=== PATIENT | female | born 1940 | race Caucasian/White ===

== ENCOUNTER 2017-01-24 13:48 | Outpatient (CLI) | payer MEDICARE, OTHER ==
[2017-01-24 14:32] LABS: #Basophils 0.1 thou/uL (0.0-0.2); #Eosinphils 0.2 thou/uL (0.0-0.7); #Lymphocytes 1.3 thou/uL (1.20-3.40); #Monocytes 0.5 thou/uL (0.11-0.59); %Basophils 1.5 % (0.0-1.0); %Eosinophils 3.3 % (0.0-10.0); %Lymphocytes 25.5 % (21.0-51.0); %Monocytes 9.8 % (0.0-10.0); %Neutrophils 59.9 % (42.0-75.0); Hemoglobin 12.4 g/dL (12.0-16.0); Mean Corpuscular HGB CONC 34.2 g/dL (32.0-36.0); Mean Corpuscular Hemoglobin 32.6 pg (27.0-31.0); Mean Corpuscular Volume 95.3 fl (81.0-99.0); Mean Platelet Volume 8.1 fL (7.4-10.4); Platelet Count 190 thou/uL (130-400); RBC Distribution Width 11.5 % (11.5-14.5); Red Blood Cell (RBC) Count 3.82 mill/uL (4.20-5.40); White Blood Cell (WBC) Count 4.9 thou/uL (4.8-10.8)
[2017-01-24 14:41] LABS: Bilirubin Negative (Negative); Blood, Urine Trace (Negative); Clarity Clear (Clear); Glucose, Urine (Dipstick) Negative (Negative); Leukocyte Negative (Negative); Nitrite Negative (Negative); Protein, Urine (Dipstick) Negative (Neg-Trace); Urobilinogen 0.2 mg/dL (0.2-1.0); pH, Urine 5.5 (5.0-9.0)
[2017-01-24 14:50] LABS: Bacteria/HPF 2+ HPF (None Seen); RBC/HPF 0-3 HPF (0-3); Squamous Epithelial 0-3 HPF (0-3); WBC/HPF 0-3 HPF (0-3)
[2017-01-24 14:51] LABS: ALT (SGPT) 9 U/L (0-55); AST (SGOT) 24 U/L (5-34); Albumin 4.1 g/dL (3.4-4.8); Alkaline Phosphatase 73 U/L (40-150); Anion Gap 14 mmol/L (10-20); BUN (Urea Nitrogen) 23 mg/dL (9.8-20.1); Bilirubin, Total 0.4 mg/dL (0.2-1.2); Calc. Creatinine Clearance 0 mL/min (70-130); Calcium 9.8 mg/dL (7.8-10.44); Carbon Dioxide 23 mmol/L (23-31); Chloride 105 mmol/L (98-107); Estimated GFR-MDRD 31; Globulin 2.5 g/dL (2.4-3.5); Glucose 99 mg/dL (83-110); Magnesium 1.6 mg/dL (1.6-2.6); Phosphorus 3.2 mg/dL (2.3-4.7); Potassium 4.3 mmol/L (3.5-5.1); Protein, Total 6.6 g/dL (5.8-8.1); Sodium 138 mmol/L (136-145)
[2017-01-27 15:24] LABS: Kappa Lambda Light Chain Ratio 1.86 (0.26-1.65); Kappa Light Chains 21.68 mg/L (3.30-19.40); Lambda Light Chain 11.67 mg/L (5.71-26.30)
[2017-01-28 07:24] LABS: Kappa/Lambda Ratio 15.5 (2.04-10.37)
== END 2017-01-24 13:49 | disposition home or self-care (01) ==
LOC: MADLAB 13:48
PROVIDERS: ATTEND Internal Medicine Nephrology
DX: C85.98 Non-Hodgkin lymphoma, unspecified, lymph nodes of multiple sites (principal); N18.9 Chronic kidney disease, unspecified; E83.40 Disorders of magnesium metabolism, unspecified; E83.30 Disorder of phosphorus metabolism, unspecified; D63.1 Anemia in chronic kidney disease; N25.81 Secondary hyperparathyroidism of renal origin; N04.9 Nephrotic syndrome with unspecified morphologic changes
CPT/HCPCS: 36415; 80053; 81001; 83735; 83883; 83970; 84100; 85025; 87077; 87086; 87186

== ENCOUNTER 2017-08-03 06:15 | Emergency (ER) | payer MEDICARE, OTHER ==
[2017-08-03] MEDS ORDERED: Sodium Chloride 0.9% 1,000 ML BAG ONE (07:07)
[2017-08-03 07:39] LABS: #Lymphocytes 0.8 thou/uL (1.20-3.40); #Monocytes 0.7 thou/uL (0.11-0.59); #Neutrophils 7.8 thou/uL (1.40-6.50); %Basophils 0.4 % (0.0-1.0); %Lymphocytes 8.1 % (21.0-51.0); %Monocytes 7.2 % (0.0-10.0); %Neutrophils 84.3 % (42.0-75.0); Hemoglobin 14.7 g/dL (12.0-16.0); Mean Corpuscular Hemoglobin 31.9 pg (27.0-31.0); Mean Corpuscular Volume 96.8 fl (81.0-99.0); Platelet Count 235 thou/uL (130-400); RBC Distribution Width 12.8 % (11.5-14.5); White Blood Cell (WBC) Count 9.3 thou/uL (4.8-10.8)
[2017-08-03] MEDS ORDERED: Morphine Sulfate 2 MG/ML SYRINGE ONE (07:40)
[2017-08-03] MEDS ORDERED: Ketorolac Tromethamine 30 MG/ML VIAL ONE (07:41)
[2017-08-03] MEDS ORDERED: Metoclopramide HCl 10 MG/2 ML VIAL ONE (07:41)
[2017-08-03] MEDS ORDERED: Ondansetron HCl/PF 4 MG/2 ML Vial ONE (07:41)
[2017-08-03 07:51] LABS: Bacteria/HPF Rare-Few HPF (None Seen); Bilirubin Negative (Negative); Blood, Urine Trace (Negative); Clarity Clear (Clear); Glucose, Urine (Dipstick) Negative (Negative); Leukocyte Negative (Negative); Nitrite Negative (Negative); Protein, Urine (Dipstick) Negative (Neg-Trace); RBC/HPF 0-3 HPF (0-3); Specific Gravity, Urine 1.015 (1.005-1.030); Squamous Epithelial 0-3 HPF (0-3); Urobilinogen 0.2 mg/dL (0.2-1.0); WBC/HPF 0-3 HPF (0-3)
[2017-08-03 07:55] LABS: ALT (SGPT) 10 U/L (8-55); AST (SGOT) 22 U/L (5-34); Alkaline Phosphatase 85 U/L (40-150); Anion Gap 17 mmol/L (10-20); BUN (Urea Nitrogen) 30 mg/dL (9.8-20.1); Bilirubin, Total 0.6 mg/dL (0.2-1.2); Calc. Creatinine Clearance 0 mL/min (70-130); Calcium 9.8 mg/dL (7.8-10.44); Carbon Dioxide 28 mmol/L (23-31); Chloride 101 mmol/L (98-107); Estimated GFR-MDRD 33; Globulin 3.3 g/dL (2.4-3.5); Glucose 145 mg/dL (83-110); Lipase 45 U/L (8-78); Potassium 4.4 mmol/L (3.5-5.1); Protein, Total 7.3 g/dL (6.0-8.3); Sodium 142 mmol/L (136-145)
--- NOTE | 2017-08-03 08:16 | RAD ---
SINGLE VIEW OF THE CHEST: Comparison: 07-15-16 History: Nausea, vomiting. FINDINGS: Single view of the chest shows a normal sized cardiomediastinal silhouette. There is no evidence of consolidation, mass, or pleural effusion. The bones are unremarkable. IMPRESSION: No evidence of acute cardiopulmonary disease. POS: [facility]
== END 2017-08-03 09:15 | disposition home or self-care (01) ==
LOC: MADERS 06:15
DX: R11.2 Nausea with vomiting, unspecified (principal); R19.7 Diarrhea, unspecified; E03.9 Hypothyroidism, unspecified
CPT/HCPCS: 71010; 80053; 81001; 82150; 83690; 85025; 87086; 96361; 96374; 96375; J1885; J2270; J2405; J2765; J7050

== ENCOUNTER 2017-08-10 12:28 | Outpatient (CLI) | payer MEDICARE, OTHER ==
[2017-08-10 12:59] LABS: Hemoglobin 12.9 g/dL (12.0-16.0)
[2017-08-10 13:00] LABS: Bilirubin Negative (Negative); Blood, Urine Trace (Negative); Clarity Clear (Clear); Glucose, Urine (Dipstick) Negative (Negative); Leukocyte Negative (Negative); Nitrite Negative (Negative); Protein, Urine (Dipstick) Negative (Neg-Trace); Specific Gravity, Urine 1.015 (1.005-1.030); Urobilinogen 0.2 mg/dL (0.2-1.0)
[2017-08-10 13:24] LABS: Albumin 3.9 g/dL (3.4-4.8); Anion Gap 14 mmol/L (10-20); BUN (Urea Nitrogen) 34 mg/dL (9.8-20.1); Calc. Creatinine Clearance 0 mL/min (70-130); Calcium 9.3 mg/dL (7.8-10.44); Carbon Dioxide 27 mmol/L (23-31); Chloride 103 mmol/L (98-107); Estimated GFR-MDRD 32; Glucose 107 mg/dL (83-110); Magnesium 1.6 mg/dL (1.6-2.6); Potassium 4.6 mmol/L (3.5-5.1); Sodium 139 mmol/L (136-145)
== END 2017-08-10 12:29 | disposition home or self-care (01) ==
LOC: MADLAB 12:28
PROVIDERS: ATTEND Internal Medicine Nephrology
DX: N18.9 Chronic kidney disease, unspecified (principal); R30.0 Dysuria; E83.40 Disorders of magnesium metabolism, unspecified; E83.30 Disorder of phosphorus metabolism, unspecified; D50.9 Iron deficiency anemia, unspecified; N25.81 Secondary hyperparathyroidism of renal origin; N04.9 Nephrotic syndrome with unspecified morphologic changes
CPT/HCPCS: 36415; 80048; 81003; 82040; 83735; 83970; 84100; 85014; 85018; 87086

== ENCOUNTER 2019-03-28 09:04 | Outpatient (CLI) | payer MEDICARE, OTHER ==
--- NOTE | 2019-03-28 11:18 | ULT ---
THYROID ULTRASOUND: HISTORY: Visible thyroid lesion on mammogram. FINDINGS: Multiple longitudinal and transverse images of the thyroid gland were obtained using a multihertz maribell ear ray transducer. Real-time color flow images were used to evaluate the thyroid gland. The right thyroid lobe measures 3.4 x 1.5 x 2.0 cm while the left lobe measures 4.4 x 2.0 x 2.2 cm. Both thyroid lobes contain numerous small solid thyroid lesions compatible with multinodular goiter. The largest lesion is in the inferior pole of the left thyroid lobe and measures 2.1 x 1.3 x 1.5 cm. This lesion has well-circumscribed margins but is solid in appearance with iso- to hypoechoic appea glenn. This gives overall TIRADS approximately points of 3-4 with repeat thyroid ultrasound in 6 mon ths being recommended for followup evaluation. IMPRESSION: TIRADS TR3, mildly suspicious. Followup sonogram in 6 months recommended. POS: [facility]
== END 2019-03-28 09:05 | disposition home or self-care (01) ==
LOC: MADULT 09:04
PROVIDERS: ATTEND General Practice
DX: E04.1 Nontoxic single thyroid nodule (principal)
CPT/HCPCS: 76536

== ENCOUNTER 2019-05-22 12:35 | Emergency (ER) | payer MEDICARE, OTHER ==
--- NOTE | 2019-05-22 13:23 | RAD ---
Radiograph left hand 3 views: DATE: 05/22/2019 HISTORY: 78-year-old female with traumatic hand pain after fall. FINDINGS: Very severe DJD at first IP. Mild DJD at first CMC. Multiple subchondral cysts at distal ulna. No acu te fracture identified. Soft tissue calcifications adjacent to the third MCP and to a lesser degree second MCP. No dislocation. Sclerosis and irregularity of articular surfaces between the radius and l unate. IMPRESSION: 1. No fracture. 2. 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 3. Moderate osteoarthrosis of radiolunate articulation.
== END 2019-05-22 13:50 | disposition home or self-care (01) ==
LOC: MADERS 12:35
DX: S63.213A Subluxation of metacarpophalangeal joint of left middle finger, initial encounter (principal); S60.222A Contusion of left hand, initial encounter; E03.9 Hypothyroidism, unspecified; R29.6 Repeated falls; Z79.899 Other long term (current) drug therapy; W18.30XA Fall on same level, unspecified, initial encounter
CPT/HCPCS: 29125

== ENCOUNTER 2019-11-14 05:33 | Emergency (ER) | payer MEDICARE, OTHER ==
[2019-11-14 06:07] LABS: #Basophils 0.1 thou/uL (0.0-0.2); #Eosinphils 0.2 thou/uL (0.0-0.7); #Lymphocytes 1.9 thou/uL (1.20-3.40); #Monocytes 0.9 thou/uL (0.11-0.59); #Neutrophils 4.3 thou/uL (1.40-6.50); %Basophils 1.3 % (0.0-1.0); %Eosinophils 3.3 % (0.0-10.0); %Lymphocytes 24.9 % (21.0-51.0); %Monocytes 12.3 % (0.0-10.0); %Neutrophils 58.2 % (42.0-75.0); Hemoglobin 11.6 g/dL (12.0-16.0); Mean Corpuscular HGB CONC 31.7 g/dL (32.0-36.0); Mean Corpuscular Hemoglobin 30.8 pg (27.0-31.0); Mean Corpuscular Volume 97.2 fL (78.0-98.0); Mean Platelet Volume 7.4 fL (7.4-10.4); Platelet Count 219 thou/uL (130-400); RBC Distribution Width 11.8 % (11.5-14.5); Red Blood Cell (RBC) Count 3.76 mill/uL (4.20-5.40); White Blood Cell (WBC) Count 7.5 thou/uL (4.8-10.8)
[2019-11-14] MEDS ORDERED: Aspirin Chewable 81 MG TAB ONE (06:18)
[2019-11-14] MEDS ORDERED: Nitroglycerin 2% Ointment 1 INCH/1 GM Packet ONE (06:18)
[2019-11-14 06:23] LABS: ALT (SGPT) 7 U/L (8-55); AST (SGOT) 17 U/L (5-34); Albumin 3.7 g/dL (3.4-4.8); Alkaline Phosphatase 59 U/L (40-110); Anion Gap 12 mmol/L (10-20); BUN (Urea Nitrogen) 29 mg/dL (9.8-20.1); Bilirubin, Total 0.3 mg/dL (0.2-1.2); Calc. Creatinine Clearance 0 mL/min (70-130); Calcium 9.6 mg/dL (7.8-10.44); Carbon Dioxide 27 mmol/L (23-31); Chloride 106 mmol/L (98-107); Estimated GFR-MDRD 33; Globulin 2.8 g/dL (2.4-3.5); Glucose 98 mg/dL (83-110); Potassium 4.5 mmol/L (3.5-5.1); Protein, Total 6.5 g/dL (6.0-8.3); Sodium 140 mmol/L (136-145)
[2019-11-14 06:24] LABS: CKMB 2.7 ng/mL (0-6.6)
--- NOTE | 2019-11-14 06:30 | RAD ---
RADIOGRAPH CHEST 1 VIEW: DATE: 11/14/2019 HISTORY: 79-year-old female with chest pain FINDINGS: There is no airspace density, pulmonary edema, or pneumothorax. The lateral costophrenic angles are n ot effaced. IMPRESSION: No acute pulmonary findings.
[2019-11-14 06:44] LABS: CK (CPK) 70 U/L (29-168); Lipase 53 U/L (8-78)
== END 2019-11-14 07:21 | disposition home or self-care (01) ==
LOC: MADERS 05:33
DX: M79.602 Pain in left arm (principal); E03.9 Hypothyroidism, unspecified; F41.9 Anxiety disorder, unspecified; Z85.72 Personal history of non-Hodgkin lymphomas; Z79.899 Other long term (current) drug therapy
CPT/HCPCS: 36415; 71045; 80053; 82550; 82553; 83690; 84484; 85025; 93005; 94760

== ENCOUNTER 2020-03-15 14:31 | Emergency (ER) | payer MEDICARE, OTHER ==
[2020-03-15] MEDS ORDERED: Adacel (T-DAP) 0.5 ML SYRINGE ONE (15:28)
--- NOTE | 2020-03-15 16:26 | RAD ---
RIGHT ELBOW FOUR VIEWS: History: Injury FINDINGS: There is some generalized soft tissue swelling of the elbow including some focal soft tissue swelling posteriorly over the olecranon. Mild arthrosis changes of the elbow joint. No acute fracture or disl ocation. No evidence for elbow joint effusion. IMPRESSION: Soft tissue swelling including over the olecranon region. This could certainly be related to soft tis farhad injury versus olecranon bursal fluid or olecranon bursitis. No fracture or dislocation or abnorma l joint effusion. POS: [facility]
--- NOTE | 2020-03-15 16:31 | CT ---
BRAIN CT WITHOUT IV CONTRAST: History: Injury from a fall. FINDINGS: There is some atrophy and chronic white matter ischemic change. No focal mass or midline shift. No in tra or extraaxial hemorrhage. Right maxillary sinus mucosal disease in the anterior inferior right ma xillary sinus with some increased density, evidence for some chronic change. No evidence for air flui d level. Visualized orbits are unremarkable. IMPRESSION: 1. Atrophy and chronic white matter ischemic change. Right maxillary sinus mucosal disease. No signif icant acute process. POS: [facility]
--- NOTE | 2020-03-15 16:35 | CT ---
CERVICAL SPINE CT SCAN WITHOUT IV CONTRAST: History: Injury from a fall, neck pain. FINDINGS: Fairly severe spondylosis with disc osteophytosis and facet arthrosis. 0.2 cm anterolisthesis of C7 o n T1 which appears to be degenerative in origin. No evidence for associated acute fracture or facet d islocation. There is very severe facet arthrosis bilaterally. There are numerous fibronodular changes in the lung apices bilaterally, probably related to scarring and chronic lung disease. There is defo rmity of the right mandibular condyle which is anteriorly chronically subluxed or dislocation. The ma stoids appear clear. IMPRESSION: 1. Severe disc osteophytosis and facet arthrosis with mild 0.2 cm anterolisthesis of C7 on T1 without acute fracture or facet dislocation. Numerous small bilateral thyroid nodules up to 1.4 cm in size w ith some hyperdense nodules and some scattered calcific changes throughout the thyroid gland, evidenc e for multinodular goiter. If that is an area of clinical concern, a follow up nonemergent thyroid ul trasound might be considered. 2. Some fibrolinear and fibronodular scarring in the apices of the lungs bilaterally. POS: [facility]
== END 2020-03-15 16:00 | disposition home or self-care (01) ==
LOC: MADERS 14:31
DX: S03.01XA Dislocation of jaw, right side, initial encounter (principal); S16.1XXA Strain of muscle, fascia and tendon at neck level, initial encounter; S50.01XA Contusion of right elbow, initial encounter; J32.9 Chronic sinusitis, unspecified; E03.9 Hypothyroidism, unspecified; F41.9 Anxiety disorder, unspecified; Z79.899 Other long term (current) drug therapy; W01.0XXA Fall on same level from slipping, tripping and stumbling without subsequent striking against object, initial encounter
CPT/HCPCS: 70450; 72125; 90471; 90715

== ENCOUNTER 2020-09-09 17:47 | Emergency (ER) | payer MEDICARE, OTHER ==
[2020-09-09 18:38] LABS: #Basophils 0.1 thou/uL (0.0-0.2); #Lymphocytes 0.8 thou/uL (1.20-3.40); #Monocytes 0.9 thou/uL (0.11-0.59); #Neutrophils 7.5 thou/uL (1.40-6.50); %Basophils 1.4 % (0.0-1.0); %Eosinophils 0.1 % (0.0-10.0); %Lymphocytes 8.5 % (21.0-51.0); %Monocytes 9.5 % (0.0-10.0); %Neutrophils 80.5 % (42.0-75.0); Hemoglobin 11.6 g/dL (12.0-16.0); Mean Corpuscular HGB CONC 32.8 g/dL (32.0-36.0); Mean Corpuscular Hemoglobin 31.4 pg (27.0-31.0); Mean Corpuscular Volume 95.5 fL (78.0-98.0); Mean Platelet Volume 8.2 fL (7.4-10.4); Platelet Count 146 thou/uL (130-400); RBC Distribution Width 11.4 % (11.5-14.5); Red Blood Cell (RBC) Count 3.71 mill/uL (4.20-5.40); White Blood Cell (WBC) Count 9.3 thou/uL (4.8-10.8)
[2020-09-09 18:53] LABS: ALT (SGPT) 12 U/L (8-55); AST (SGOT) 31 U/L (5-34); Albumin 3.7 g/dL (3.4-4.8); Alkaline Phosphatase 54 U/L (40-110); Anion Gap 17 mmol/L (10-20); BUN (Urea Nitrogen) 19 mg/dL (9.8-20.1); Bilirubin, Total 0.5 mg/dL (0.2-1.2); CK (CPK) 186 U/L (29-168); Calc. Creatinine Clearance 0 mL/min (70-130); Calcium 8.5 mg/dL (7.8-10.44); Carbon Dioxide 23 mmol/L (23-31); Chloride 100 mmol/L (98-107); Estimated GFR-MDRD 34; Globulin 2.5 g/dL (2.4-3.5); Glucose 113 mg/dL (83-110); Potassium 4.2 mmol/L (3.5-5.1); Protein, Total 6.2 g/dL (6.0-8.3); Sodium 136 mmol/L (136-145)
[2020-09-09 19:23] LABS: Bilirubin Negative (Negative); Blood, Urine Small (Negative); Clarity Clear (Clear); Glucose, Urine (Dipstick) Negative (Negative); Ketone, Urine Negative (Negative); Leukocyte Negative (Negative); Nitrite Negative (Negative); Protein, Urine (Dipstick) Trace mg/dL (Neg-Trace); Urobilinogen 0.2 mg/dL (Less than 2); pH, Urine 6.5 (5.0-9.0)
[2020-09-09 19:25] LABS: Bacteria/HPF 2+ HPF (None Seen); RBC/HPF 0-3 HPF (0-3); Squamous Epithelial 0-3 HPF (0-3); WBC/HPF 0-3 HPF (0-3)
[2020-09-09 19:26] LABS: Other Microscopic Description C&S SET UP
--- NOTE | 2020-09-09 19:28 | RAD ---
CHEST ONE VIEW: 09/09/20 HISTORY: Dyspnea. COMPARISON: 11/14/19 study. Heart size is within normal limits. There are atherosclerotic changes of the aorta. The lungs are neli ar of any infiltrative process. IMPRESSION: No active intrathoracic disease. POS: [facility]
[2020-09-09] MEDS ORDERED: cefTRIAXone\\ROCEPHIN 1 GM VIAL ONE (20:53)
[2020-09-09] MEDS ORDERED: Aspirin Chewable 81 MG TAB ONE (20:53)
[2020-09-09] MEDS ORDERED: Dexamethasone 10 MG/ML VIAL ONE (20:53)
[2020-09-09] MEDS ORDERED: Azithromycin 500 MG VIAL ONE (20:53)
[2020-09-09] MEDS ORDERED: Sodium Chloride 0.9% 100 ML ONE (20:54)
[2020-09-09] MEDS ORDERED: Sodium Chloride 0.9% 250 ML 250 ML ONE (20:54)
[2020-09-09] MEDS ORDERED: Sodium Chloride 0.9% 1,000 ML ONE (22:10)
[2020-09-09] MEDS ORDERED: Ondansetron PF 4 MG/2 ML Vial ONE (22:21)
[2020-09-09] MEDS ORDERED: Enoxaparin Sodium 60 MG/0.6 ML SYRINGE ONE (22:30)
== END 2020-09-09 22:33 | disposition short-term general hospital (02) ==
LOC: MADERS 17:47
DX: J20.9 Acute bronchitis, unspecified (principal); E03.9 Hypothyroidism, unspecified; F41.9 Anxiety disorder, unspecified
CPT/HCPCS: 36415; 51701; 71045; 80053; 81003; 81015; 82550; 83605; 84484; 85025; 85379; 87040; 87086; 87804; 93005; 94760; 96365; 96372; 96374; 96375; J0456; J0696; J1100; J1650; J2405; J3490; J7050

== ENCOUNTER 2020-09-22 11:41 | Inpatient (IN) | payer MEDICARE, OTHER ==
--- NOTE | 2020-09-22 12:26 | RAD ---
PA AND LATERAL VIEWS CHEST: Date: 09/22/2020 HISTORY: Pleuritic chest pain. FINDINGS: Comparison made with exam of 09/09/2020. The heart size is borderline. The lungs are well expanded with new multifocal patchy opacities bilate rally. No pneumothoraces or pleural effusions are seen. There are degenerative changes in the spine. IMPRESSION: Findings are suspicious for pneumonia. POS: [facility]
[2020-09-22 12:35] LABS: #Basophils 0.1 thou/uL (0.0-0.2); #Eosinphils 0.2 thou/uL (0.0-0.7); %Basophils 0.6 % (0.0-1.0); %Eosinophils 1.8 % (0.0-10.0); %Lymphocytes 8.8 % (21.0-51.0); %Monocytes 8.7 % (0.0-10.0); %Neutrophils 80.1 % (42.0-75.0); Hemoglobin 13.3 g/dL (12.0-16.0); Mean Corpuscular HGB CONC 31.9 g/dL (32.0-36.0); Mean Corpuscular Hemoglobin 31.7 pg (27.0-31.0); Mean Corpuscular Volume 99.3 fL (78.0-98.0); Mean Platelet Volume 6.6 fL (7.4-10.4); Platelet Count 228 thou/uL (130-400); RBC Distribution Width 12.1 % (11.5-14.5); White Blood Cell (WBC) Count 11.3 thou/uL (4.8-10.8)
[2020-09-22 12:58] LABS: ALT (SGPT) 12 U/L (8-55); AST (SGOT) 23 U/L (5-34); Albumin 3.3 g/dL (3.4-4.8); Alkaline Phosphatase 86 U/L (40-110); Anion Gap 14 mmol/L (10-20); BUN (Urea Nitrogen) 25 mg/dL (9.8-20.1); Bilirubin, Total 0.4 mg/dL (0.2-1.2); Calc. Creatinine Clearance 0 mL/min (70-130); Calcium 9.4 mg/dL (7.8-10.44); Carbon Dioxide 29 mmol/L (23-31); Chloride 102 mmol/L (98-107); Estimated GFR-MDRD 36; Globulin 3.1 g/dL (2.4-3.5); Glucose 103 mg/dL (83-110); Lipase 57 U/L (8-78); Potassium 4.9 mmol/L (3.5-5.1); Protein, Total 6.4 g/dL (6.0-8.3); Sodium 140 mmol/L (136-145)
[2020-09-22] MEDS ORDERED: Sodium Chloride 0.9% 1,000 ML ONE (13:30)
[2020-09-22] MEDS ORDERED: cefTRIAXone\\ROCEPHIN 2 GM VIAL ONE (13:30)
[2020-09-22] MEDS ORDERED: Enoxaparin Sodium 40 MG/0.4 ML SYRINGE ONE (13:30)
[2020-09-22] MEDS ORDERED: Sodium Chloride 0.9% 100 ML ONE (13:30)
[2020-09-22] MEDS ORDERED: Azithromycin 500 MG VIAL ONE (14:45)
[2020-09-22] MEDS ORDERED: Sodium Chloride 0.9% 250 ML 250 ML ONE (14:45)
[2020-09-22 16:12] VITALS: BMI 19.8
[2020-09-22] MEDS ORDERED: Albuterol Sulfate 1.25 MG/3 ML NEB NEB PRN (17:24)
[2020-09-22] MEDS ORDERED: Zolpidem Tartrate 5 MG TAB PO PRN (18:02)
[2020-09-22] MEDS ORDERED: Ondansetron ODT 4 MG TAB PO PRN (18:02)
[2020-09-22] MEDS ORDERED: Acetaminophen 325 MG TAB PO PRN (18:02)
[2020-09-22] MEDS ORDERED: Guaifenesin DM 100-10/5 ML UDCUP PO PRN (18:06)
[2020-09-22] MEDS: Enoxaparin Sodium 40 MG/0.4 ML SYRINGE SC SCH (20:33)
[2020-09-22] MEDS: Simvastatin 40 MG TAB PO SCH (20:33)
--- NOTE | 2020-09-23 03:18 | HP ---
PRIMARY CARE PHYSICIAN: Dr. Beverly Posada. HISTORY OF PRESENT ILLNESS: Ms. Valdivia is a very pleasant 80-year-old female, who had presented to the emergency room today, September 22, due to cough, painful breathing and pain to the upper back with some shortness of breath. The patient was admitted to [facility] in [place] on the August and discharged on the 16 September 2020 due to COVID-19 pneumonia with acute respiratory failure with hypoxia. The patient did well in the hospital. In [place], she was given convalescent plasma on the 12 of September and started on Remdesivir and she completed 4 days of Remdesivir and prior to discharge on the , the patient was able to ambulate with a rolling walker and she was discharged home with home oxygen and to continue dexamethasone for another 5 days and [facility]. The patient unfortunately on the 16 of September also lost her of 61 years due to COVID-19 pneumonia. She stated she went back to her home, but was unable to berry picker the dexamethasone, but was doing okay and she was not needing the oxygen as much. The patient stated she was doing pretty well until this a.m. when she noted worsening shortness of breath and left-sided pain with deep breath to the left posterior thorax radiating to the left posterior neck. The patient denies pain anywhere else. She denies any fever. She stated she continues to have a cough even when she was discharged. She denies any other symptoms. She denies any abdominal pain, any nausea, vomiting, or diarrhea. She denies fatigue. She denies chest pain or palpitations. The patient had chest x-ray in the emergency room and the chest x-ray did confirm bilateral new multifocal patchy opacities suspicious for pneumonia. The patient was started on IV 2 g Rocephin, normal saline, 500 mg of azithromycin with 40 mg of Lovenox in the emergency room. She chose not to go to the hospital in [place] due to recent discharge and preferred to be admitted here in [place]. Patient did further workup and this showed elevated D-dimer and upon evaluation, she had elevated D-dimer during admission recently in [place] due to COVID-19 pneumonia too. The decision was made to admit the patient here to [facility] in [facility]. Upon evaluation of patient, she was sad due to recent loss of her . She states she continues to feel little pain to her left upper back. 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 PAST SURGICAL HISTORY: C-sections x3, knee replacements, lymphectomy, bilateral cataracts, hysterectomy with BSO, colon resection due to blockage in 2014. FAMILY HISTORY: Mother at age 78 due to Alzheimer's. Father at age 72 due to heart attack. The patient does have 1 son who is alive and her spouse last week. SOCIAL HISTORY: The patient lives at home. She denies any illicit drug use. She denies any history of tobacco use. She denies any alcohol use. ALLERGIES: IODINE RASH ALLERGY. CODE STATUS: The patient is a full code. REVIEW OF SYSTEMS: CONSTITUTIONAL SYMPTOMS: Patient denies any fever, chills. Complains of some weakness. CARDIOVASCULAR: The patient denies any chest pain, syncope, blood pressure issue, problems of palpitation. RESPIRATORY: Patient complains of cough and shortness of breath. GASTROINTESTINAL: Patient denies any nausea, vomiting, diarrhea, constipation, indigestion, or pain in abdomen. GENITOURINARY: Patient denies any frequency, urgency, nocturia, or dysuria. HEMATOLOGY: No easy bruising or bleeding MUSCULOSKELETAL: The patient complains of joint pains. SKIN: Denies any rashes. NEUROLOGIC: The patient denies any slurring of speech or confusion. PSYCHOLOGICAL: The patient complains of some depression and grief due to recent loss of her . HOME MEDICATIONS: 1. Dexamethasone 6 mg p.o. daily x5 days. Not started yet 2. Albuterol nebulizer q.6 hours p.r.n. 3. Bisoprolol 5 mg daily. 4. Protonix 40 mg daily. 5. Aspirin 81 mg daily. 6. Duloxetine 40 mg b.i.d. 7. Simvastatin 40 mg at bedtime. PHYSICAL EXAMINATION: VITAL SIGNS: Temperature 97.8, pulse 64, respirations 18, O2 saturation 95% on room air, blood pressure 124/77. GENERAL: The patient is alert, awake, and oriented x3. She is lying comfortably in bed, in no apparent distress. HEENT: Extraocular muscles intact. No conjunctival injection. Nose exam is normal. Head is atraumatic, normocephalic. Tonsil area clear. NECK: Normal. Trachea midline. No meningeal signs. RESPIRATORY: Positive good air entry bilaterally. No wheezing. Occasional rhonchi present bilaterally. Chest expansion is equal. CARDIOVASCULAR: S1, S2. Regular rate and rhythm. No murmurs, gallops, or rubs. ABDOMEN: Positive bowel sounds. Soft, nontender, nondistended. No organomegaly. EXTREMITIES: No edema. No cyanosis. NEUROLOGICAL: No focal neurologic deficits. Cranial nerves 2 through 12 grossly intact. PSYCHIATRIC: Appropriate mood and affect. Positive for grief. SKIN: Normal. Warm and dry. Normal in color. No rash. ASSESSMENT AND PLAN: Patient is an 80-year-old female with history of recent COVID-19 pneumonia with acute respiratory failure with hypoxia, now with post viral bilateral bacterial pneumonia. 1. Post Viral Bilateral pneumonia. We will continue patient on IV Rocephin and IV azithromycin x5 days started in the ER. We will place the patient on supplemental oxygen as needed. We will place the patient on albuterol p.r.n. nebulizer. We will place the patient on Robitussin DM p.r.n. for cough. 2. Coronavirus disease 2019. We will restart the dexamethasone 6 mg p.o. times another 5 days. 3. Hypertension. We will resume the patient's home bisoprolol 5 mg daily. 4. Neuropathic pain. We will place the patient on duloxetine 40 mg twice a day. 5. Hypercholesterolemia. We will place the patient on simvastatin 40 mg at bedtime. 6. Grief. Will need outpatient counselling. 7. Generalized weakness. PT/OT consult ordered. 8. DVT and GI prophylaxis. We will place the patient on Protonix 40 mg daily[address] We will place the patient on Lovenox 40 mg daily. Code status. The patient is a full code. I have discussed about this at bedside. (60) minutes spent on this encounter with >50% of the time in counseling and coordination of care. Job ID: [id number] MTDD
[2020-09-23] MEDS: Dexamethasone 4 MG TAB PO SCH (08:54)
[2020-09-23] MEDS: Bisoprolol Fumarate 5 MG TAB PO SCH (08:55)
[2020-09-23] MEDS: Enoxaparin Sodium 40 MG/0.4 ML SYRINGE SC SCH ×2 (08:55→19:58)
[2020-09-23] MEDS: Aspirin 81 mg Enteric Coated Tablet PO SCH (08:55)
[2020-09-23] MEDS ORDERED: FLU VACC QS2020-21(65YR UP)/PF 240 MCG/0.7 ML SYRINGE IM ONE (09:00)
[2020-09-23] MEDS: cefTRIAXone\\ROCEPHIN 1 GM in Sodium Chloride 0.9% 100 ML IVPB SCH (13:30)
[2020-09-23] MEDS: Azithromycin 500 MG in Sodium Chloride 0.9% 250 ML 250 ML IVPB SCH (14:49)
[2020-09-23] MEDS: Simvastatin 40 MG TAB PO SCH (19:58)
[2020-09-23] MEDS: Temazepam 15 MG CAP PO SCH (20:01)
[2020-09-24] MEDS: Dexamethasone 4 MG TAB PO SCH (08:40)
[2020-09-24] MEDS: Aspirin 81 mg Enteric Coated Tablet PO SCH (08:40)
[2020-09-24] MEDS: Bisoprolol Fumarate 5 MG TAB PO SCH (08:40)
[2020-09-24] MEDS: Enoxaparin Sodium 40 MG/0.4 ML SYRINGE SC SCH ×2 (08:41→21:10)
[2020-09-24] MEDS: cefTRIAXone\\ROCEPHIN 1 GM in Sodium Chloride 0.9% 100 ML IVPB SCH (12:55)
[2020-09-24] MEDS: Azithromycin 500 MG in Sodium Chloride 0.9% 250 ML 250 ML IVPB SCH (14:09)
[2020-09-24] MEDS: Simvastatin 40 MG TAB PO SCH (21:11)
[2020-09-24] MEDS: Temazepam 15 MG CAP PO SCH (21:12)
[2020-09-25 06:04] LABS: #Lymphocytes 0.9 thou/uL (1.20-3.40); #Monocytes 0.6 thou/uL (0.11-0.59); #Neutrophils 10.9 thou/uL (1.40-6.50); %Basophils 0.2 % (0.0-1.0); %Monocytes 4.8 % (0.0-10.0); Hemoglobin 11.6 g/dL (12.0-16.0); Mean Corpuscular HGB CONC 31.9 g/dL (32.0-36.0); Mean Corpuscular Hemoglobin 31.9 pg (27.0-31.0); Mean Platelet Volume 7.8 fL (7.4-10.4); Platelet Count 194 thou/uL (130-400); RBC Distribution Width 11.8 % (11.5-14.5); Red Blood Cell (RBC) Count 3.63 mill/uL (4.20-5.40); White Blood Cell (WBC) Count 12.4 thou/uL (4.8-10.8)
[2020-09-25 06:12] LABS: ALT (SGPT) 10 U/L (8-55); AST (SGOT) 17 U/L (5-34); Albumin 3.1 g/dL (3.4-4.8); Alkaline Phosphatase 77 U/L (40-110); Anion Gap 13 mmol/L (10-20); BUN (Urea Nitrogen) 28 mg/dL (9.8-20.1); Bilirubin, Total 0.2 mg/dL (0.2-1.2); Calc. Creatinine Clearance 37 mL/min (70-130); Calcium 8.8 mg/dL (7.8-10.44); Carbon Dioxide 24 mmol/L (23-31); Chloride 108 mmol/L (98-107); Estimated GFR-MDRD 51; Globulin 2.9 g/dL (2.4-3.5); Glucose 134 mg/dL (83-110); Potassium 4.3 mmol/L (3.5-5.1); Sodium 141 mmol/L (136-145)
--- NOTE | 2020-09-25 07:20 | RAD ---
EXAM: Chest PA and lateral: HISTORY: Bilateral pneumonia COMPARISON: 09/09/2020, 09/22/2020 FINDINGS: Heart: Normal cardiac silhouette Aorta: Atherosclerotic Pulmonary vessels: Normal Costophrenic angles: Costophrenic angles are clear. Lungs: Redemonstration of multifocal opacities involving the left and right upper lobe. There is mild rightward deviation of the trachea suggesting possible component of right upper lobe atelectasis. Better interrogation of the chest CT would be beneficial. Pneumothorax: No pneumothorax Osseous structures: No osseous abnormalities IMPRESSION: 1. Multilobar pneumonia. 2. Possible volume loss in the right upper lobe. Better interrogation with chest CT is recommended.
[2020-09-25] MEDS: Bisoprolol Fumarate 5 MG TAB PO SCH (08:42)
[2020-09-25] MEDS: Aspirin 81 mg Enteric Coated Tablet PO SCH (08:43)
[2020-09-25] MEDS: Enoxaparin Sodium 40 MG/0.4 ML SYRINGE SC SCH (08:43)
[2020-09-25] MEDS: Dexamethasone 4 MG TAB PO SCH (08:43)
--- OUTSIDE RECORDS SUMMARY | 2020-09-25 12:05 | XMS | Patient Health Record ---
:1940 Author Organization [facility] Care Team Providers Name Role Phone Salzer Unavailable [phone] Meurer Unavailable [phone] [email or web address] Unavailable [phone] PROBLEMS Type Condition ICD9-CM VST71-PP Onset Condition SNOMED Code Notes Code Code Dates Status Problem Thyroid nodule E04.1 Active 155905327 Problem Hearing loss H91.90 Active 80077930 ALLERGIES No Known Allergies ENCOUNTERS from 1940 to 2020-09-25 Encounter Location Date Provider Diagnosis [facility] [address] [place] [address] 13 May, 2020 Adalid Don Thyroid n odule E04.1 ; [facility] [address] [place], [place] Hearing loss H9 1.90 [id number] IMMUNIZATIONS No Information SOCIAL HISTORY Tobacco Use: Social History Observation Description Date Details (start date - stop date) Never Smoker Sex Assigned At : Social History Observation Description Sex Assigned At Unknown Other Tobacco Use/Exposure Question Answer Notes Are you an other tobacco user? No Smoking Question Answer Notes Are you a: never smoker REASON FOR REFERRAL from 1940 to 2020-09-25 Reason CCM Referring Provider First Name Adalid Referring Provider Last Name Arian Referring Provider Specialty ENT Referring Provider [email or web address] Referred Provider [facility] ystem, Medical Records VITAL SIGNS No information MEDICATIONS Medication SIG (Take, Route, Frequency, Duration) Start Date En d Date Status Pantoprazole Sodium Active Zolpidem Tartrate Active Bisoprolol Fumarate Active Lorazepam Active levothyroxine Active PROCEDURES No Information RESULTS No Results REASON FOR VISIT Thyroid nodule--mb , Hoarseness ~ [facility], Referral MEDICAL (GENERAL) HISTORY Type Description Date Medical History allergies Medical History asthma Medical History cancer Medical History eye problems Medical History thyroid trouble Medical History high or low blood pressure Medical History pain in arms and hands Surgical History No know Surgical history Hospitalization History bowel 2013 Goals Section No Information Health Concerns No Information MEDICAL EQUIPMENT No Information MENTAL STATUS No Information FUNCTIONAL STATUS No Information ASSESSMENTS Encounter Date Diagnosis Notes May, Disequilibrium (ICD-10 - R42) May, Thyroid nodule (ICD-10 - E04.1) May, Hearing loss (ICD-10 - H91.90) Nov, Disequilibrium (ICD-10 - R42) Nov, Thyroid nodule (ICD-10 - E04.1) PLAN OF TREATMENT Treatment Notes Assessment Notes Clinical Notes Thyroid nodule Patient to repeat ultrasound of thyroid in 6 months to monitor changes and get labs to monitor thyroid function Disequilibrium Patient to get a VNG to monitor balance issues and RTC after VNG to discuss results. Patient is compliant with all information and has no further quest ions at this time of the visit. HIA -- GTM Treatment Notes Test Name Order Date FREE T3 2020-09-25 FREE T4 (FT4-FREE THYROXINE) 2020-09-25 VNG 2020-09-25 TSH-3RD GEN 2020-09-25 Future Test Test Name Order Date Ultrasound : Thyroid [id number] Referrals Referral Date Details Hoarseness, [facility], [place], [address], Thyroid nodule--aashish, Aadlid August [facility], [address], [place], [address], CCM CCM Next Appt Details After VNG Reason: Insurance Providers Payer Name Payer Address Payer Insured Patient Coverage Cover age Phone Name Relationship to Start Date End Date Insured [employer] [phone] Hunter Valdivia self Juani Hernandez [address] [place] [address] [place] [address] Medicare [address] ATTN [phone] Hunter Valdivia self Part [address] Claims [id number] [place] [phone]
[2020-09-25 12:41] VITALS: BP 139/79; TEMP 98
[2020-09-25] MEDS: cefTRIAXone\\ROCEPHIN 1 GM in Sodium Chloride 0.9% 100 ML IVPB SCH (13:11)
[2020-09-25] MEDS: Azithromycin 500 MG in Sodium Chloride 0.9% 250 ML 250 ML IVPB SCH (14:05)
== END 2020-09-25 14:52 | disposition swing bed (61) | DRG 177 ==
LOC: MADERS 11:41 → MADMS 14:02
PROVIDERS: ADMIT Family Medicine; ATTEND Family Medicine
DX: U07.1 COVID-19 (principal); J12.89 Other viral pneumonia; E03.9 Hypothyroidism, unspecified; E78.5 Hyperlipidemia, unspecified; N18.30 Chronic kidney disease, stage 3 unspecified; G47.00 Insomnia, unspecified; I12.9 Hypertensive chronic kidney disease with stage 1 through stage 4 chronic kidney disease, or unspecified chronic kidney disease; Z79.82 Long term (current) use of aspirin; Z79.899 Other long term (current) drug therapy; Z79.51 Long term (current) use of inhaled steroids; Z90.710 Acquired absence of both cervix and uterus; Z98.42 Cataract extraction status, left eye; Z98.41 Cataract extraction status, right eye; R53.1 Weakness; F43.21 Adjustment disorder with depressed mood
CPT/HCPCS: 36415; 71046; 80053; 83690; 84484; 85025; 85379; 87040; 87804; 93005; 96365; 96372; 96375; J0456; J0696; J1650; J3490; J7050; J8540

== ENCOUNTER 2020-09-25 12:49 | Inpatient (IN) | payer MEDICARE, OTHER ==
[2020-09-25 14:55] VITALS: BMI 19.9
[2020-09-25] MEDS ORDERED: Acetaminophen 325 MG TAB PO PRN (16:51)
[2020-09-25] MEDS ORDERED: Albuterol Sulfate 1.25 MG/3 ML NEB NEB PRN (16:51)
[2020-09-25] MEDS ORDERED: Guaifenesin DM 100-10/5 ML UDCUP PO PRN (16:53)
[2020-09-25] MEDS ORDERED: Ondansetron ODT 4 MG TAB PO PRN (16:53)
[2020-09-25] MEDS: Atorvastatin Calcium 10 MG TAB PO SCH (21:03)
[2020-09-25] MEDS: Enoxaparin Sodium 40 MG/0.4 ML SYRINGE SC SCH (21:04)
[2020-09-25] MEDS: Temazepam 15 MG CAP PO SCH (21:11)
[2020-09-26] MEDS: Levothyroxine Sodium 50 MCG TAB PO SCH (06:13)
[2020-09-26] MEDS: Enoxaparin Sodium 40 MG/0.4 ML SYRINGE SC SCH ×2 (08:57→21:46)
[2020-09-26] MEDS: Aspirin 81 mg Enteric Coated Tablet PO SCH (08:57)
[2020-09-26] MEDS: Bisoprolol Fumarate 5 MG TAB PO SCH (08:57)
[2020-09-26] MEDS: Dexamethasone 4 MG TAB PO SCH (08:57)
[2020-09-26] MEDS: cefTRIAXone\\ROCEPHIN 1 GM VIAL IVPB SCH (14:03)
[2020-09-26] MEDS: Azithromycin 500 MG VIAL IVPB SCH (15:38)
[2020-09-26] MEDS: Atorvastatin Calcium 10 MG TAB PO SCH (21:43)
[2020-09-26] MEDS: Temazepam 15 MG CAP PO SCH (21:44)
[2020-09-27] MEDS: Levothyroxine Sodium 50 MCG TAB PO SCH (08:22)
[2020-09-27] MEDS: Enoxaparin Sodium 40 MG/0.4 ML SYRINGE SC SCH ×2 (08:25→20:59)
[2020-09-27] MEDS: Dexamethasone 4 MG TAB PO SCH (08:25)
[2020-09-27] MEDS: Aspirin 81 mg Enteric Coated Tablet PO SCH (08:26)
[2020-09-27] MEDS: Bisoprolol Fumarate 5 MG TAB PO SCH (08:26)
[2020-09-27] MEDS: cefTRIAXone\\ROCEPHIN 1 GM VIAL IVPB SCH (13:50)
[2020-09-27] MEDS: Azithromycin 500 MG VIAL IVPB SCH (15:15)
[2020-09-27] MEDS: Atorvastatin Calcium 10 MG TAB PO SCH (20:59)
[2020-09-27] MEDS: Temazepam 15 MG CAP PO SCH (20:59)
[2020-09-28] MEDS: Levothyroxine Sodium 50 MCG TAB PO SCH (05:34)
[2020-09-28] MEDS: Dexamethasone 4 MG TAB PO SCH (08:44)
[2020-09-28] MEDS: Enoxaparin Sodium 40 MG/0.4 ML SYRINGE SC SCH ×2 (08:44→20:04)
[2020-09-28] MEDS: Bisoprolol Fumarate 5 MG TAB PO SCH (08:44)
[2020-09-28] MEDS: Aspirin 81 mg Enteric Coated Tablet PO SCH (08:44)
[2020-09-28] MEDS: Temazepam 15 MG CAP PO SCH (20:04)
[2020-09-28] MEDS: Atorvastatin Calcium 10 MG TAB PO SCH (20:05)
[2020-09-29] MEDS: Levothyroxine Sodium 50 MCG TAB PO SCH (05:23)
[2020-09-29 07:55] VITALS: BP 153/74; TEMP 97.7
[2020-09-29] MEDS: Aspirin 81 mg Enteric Coated Tablet PO SCH (08:43)
[2020-09-29] MEDS: Bisoprolol Fumarate 5 MG TAB PO SCH (08:43)
[2020-09-29] MEDS: Enoxaparin Sodium 40 MG/0.4 ML SYRINGE SC SCH (08:48)
--- NOTE | 2020-09-30 02:25 | DIS ---
DATE OF ADMISSION: 09/25/2020 DATE OF DISCHARGE: 09/29/2020 PRIMARY CARE AND DISCHARGING PHYSICIAN: Beverly Posada MD DISCHARGE DISPOSITION: Back to home. DISCHARGE DIAGNOSES: 1. Coronavirus disease 2019 pneumonia. 2. Postviral bilateral pneumonia. 3. Generalized weakness. 4. Hypothyroidism. 5. Grief. 6. Primary insomnia. 7. Hypertension. 8. No tobacco abuse. DISCHARGE MEDICATIONS: 1. Aspirin 81 mg daily. 2. Bisoprolol 5 mg daily. 3. Cymbalta 40 mg b.i.d. 4. Protonix 40 mg daily. 5. Synthroid 50 mcg daily. 6. Simvastatin 40 mg q.h.s. ALLERGIES: TO IODINE. DISCHARGE INSTRUCTIONS: The patient is to follow up with primary care physician within one week. The patient to have repeat chest x-ray done in 3 weeks. The patient to restart physical therapy with [facility]. BRIEF HOSPITAL COURSE: Ms. Valdivia is a very pleasant 80-year-old female, who was initially admitted to [facility] on the 10 of September for shortness of breath, fever, and cough. The patient was positive for COVID-19 and at that time was given convalescent plasma on the and completed remdesivir for 4 days. The patient progressively improved and she was discharged home. Unfortunately, patient's was also positive for COVID-19 and on September 16, the day she was discharged home. The patient stated she was at home and slowly improving, but on September 22, she developed shortness of breath, worsening cough, and left-sided pain and pain with respiration. The patient presented back to the emergency room. She states the she was discharged on dexamethasone for 5 days, but she had been unable to pick of those medications. In the emergency room, a chest x-ray did confirm bilateral new multifocal patchy opacities suspicious for pneumonia, so patient was admitted for postviral bacterial pneumonia. She was started on IV 2 g of Rocephin and 500 mg of azithromycin with 40 mg of Lovenox. The patient completed IV antibiotics for 5 days. Repeat chest x-ray did not show any improvement, but patient clinically was improved. She stated her cough has subsided significantly. She was excited to be discharged home. Patient to use incentive spirometry throughout hospitalization and progressively improved with this. Vital signs on day of discharge were temperature 97.7, pulse 69, respirations 15, O2 saturation 97% on room air, blood pressure 153/74. Throughout hospitalization, the patient did not need any oxygen. Due to physical deconditioning, patient was transferred to the swing bed on the 25 of September and started on physical therapy and she states this helped significantly. The patient was very eager to go home due to the election and so as to be able to grief the loss of her of 61 years properly. On September 29, 2020, patient was discharged home in a stable condition with the family members. She was given discharge instructions and followup appointment is given as needed. Total time used to prepare, appliance counselor, and examine the patient was a total of over 45 minutes. Job ID: [id number]
== END 2020-09-29 15:12 | disposition home health service (06) | DRG 947 ==
LOC: MADMS 14:53
PROVIDERS: ADMIT Family Medicine; ATTEND Family Medicine
DX: R53.1 Weakness (principal); U07.1 COVID-19; J12.89 Other viral pneumonia; R53.81 Other malaise; G47.00 Insomnia, unspecified; F43.21 Adjustment disorder with depressed mood; E03.9 Hypothyroidism, unspecified; I10 Essential (primary) hypertension
CPT/HCPCS: J0456; J0696; J1650; J7620; J8540

== ENCOUNTER 2020-11-30 08:33 | Emergency (ER) | payer MEDICARE, OTHER ==
[2020-11-30] MEDS ORDERED: Ibuprofen 200 MG TAB ONE (09:13)
[2020-11-30 09:43] LABS: #Basophils 0.1 thou/uL (0.0-0.2); #Eosinphils 0.2 thou/uL (0.0-0.7); #Lymphocytes 1.2 thou/uL (1.20-3.40); #Monocytes 0.8 thou/uL (0.11-0.59); #Neutrophils 5.3 thou/uL (1.40-6.50); %Eosinophils 2.9 % (0.0-10.0); %Lymphocytes 15.6 % (21.0-51.0); %Neutrophils 69.6 % (42.0-75.0); Hemoglobin 12.4 g/dL (12.0-16.0); Mean Corpuscular HGB CONC 32.2 g/dL (32.0-36.0); Mean Corpuscular Hemoglobin 31.5 pg (27.0-31.0); Mean Corpuscular Volume 97.7 fL (78.0-98.0); Mean Platelet Volume 7.9 fL (7.4-10.4); Platelet Count 190 thou/uL (130-400); RBC Distribution Width 11.7 % (11.5-14.5); Red Blood Cell (RBC) Count 3.93 mill/uL (4.20-5.40); White Blood Cell (WBC) Count 7.6 thou/uL (4.8-10.8)
[2020-11-30 09:44] LABS: ALT (SGPT) 9 U/L (8-55); AST (SGOT) 22 U/L (5-34); Albumin 3.7 g/dL (3.4-4.8); Alkaline Phosphatase 76 U/L (40-110); Anion Gap 12 mmol/L (10-20); BUN (Urea Nitrogen) 21 mg/dL (9.8-20.1); Bilirubin, Total 0.4 mg/dL (0.2-1.2); Calc. Creatinine Clearance 0 mL/min (70-130); Calcium 8.9 mg/dL (7.8-10.44); Carbon Dioxide 26 mmol/L (23-31); Chloride 106 mmol/L (98-107); Globulin 2.6 g/dL (2.4-3.5); Glucose 100 mg/dL (83-110); Potassium 4.2 mmol/L (3.5-5.1); Protein, Total 6.3 g/dL (6.0-8.3); Sodium 140 mmol/L (136-145)
[2020-11-30] MEDS ORDERED: predniSONE 20 MG TAB ONE (10:35)
--- NOTE | 2020-11-30 11:15 | RAD ---
PA AND LATERAL VIEWS CHEST: Date: 11/30/2020 COMPARISON: 09/25/2020. FINDINGS: The heart size is normal. The aorta is tortuous. The lungs are well expanded with chronic changes. Th ere has been interval resolution of the patchy infiltrates in the lungs noted on the previous study. No pneumothoraces or pleural effusions are seen. There are degenerative changes in the spine. IMPRESSION: No acute process. POS: [facility]
--- NOTE | 2020-11-30 11:24 | RAD ---
CERVICAL SPINE 4 VIEWS: Date: 11/30/2020 HISTORY: Neck pain. FINDINGS: Degenerative changes are seen, most prominent in the lower cervical spine. There is 7.0 mm anterolist hesis of the vertebral body of C4 over C5. No compression fractures are identified. IMPRESSION: Cervical spondylosis. If there is concern for radiculopathy or myelopathy, further evaluation with MR I should be performed. POS: [facility]
== END 2020-11-30 10:40 | disposition home or self-care (01) ==
LOC: MADERS 08:33
DX: M54.12 Radiculopathy, cervical region (principal); M79.601 Pain in right arm; M79.602 Pain in left arm; E03.9 Hypothyroidism, unspecified; Z85.72 Personal history of non-Hodgkin lymphomas; Z79.82 Long term (current) use of aspirin; Z79.899 Other long term (current) drug therapy
CPT/HCPCS: 71046; 72040; 80053; 83880; 84484; 85025; J7512

== ENCOUNTER 2020-12-31 13:48 | Emergency (ER) | payer MEDICARE, OTHER ==
[~2020-12-31 13:48] MED LIST: Sodium Chloride 0.9% 1,000 ML BAG ONE
[2020-12-31 14:08] LABS: #Basophils 0.1 thou/uL (0.0-0.2); #Eosinphils 0.3 thou/uL (0.0-0.7); #Lymphocytes 1.6 thou/uL (1.20-3.40); #Monocytes 0.7 thou/uL (0.11-0.59); #Neutrophils 2.9 thou/uL (1.40-6.50); %Basophils 1.8 % (0.0-1.0); %Eosinophils 5.3 % (0.0-10.0); %Monocytes 12.8 % (0.0-10.0); %Neutrophils 52.1 % (42.0-75.0); Hemoglobin 13.5 g/dL (12.0-16.0); Mean Corpuscular Hemoglobin 31.1 pg (27.0-31.0); Mean Corpuscular Volume 94.1 fL (78.0-98.0); Mean Platelet Volume 7.2 fL (7.4-10.4); Platelet Count 248 thou/uL (130-400); RBC Distribution Width 11.3 % (11.5-14.5); Red Blood Cell (RBC) Count 4.33 mill/uL (4.20-5.40); White Blood Cell (WBC) Count 5.6 thou/uL (4.8-10.8)
[2020-12-31 14:11] LABS: INR-International Normal Ratio 0.9; Prothrombin Time 12.7 sec (12.0-14.7)
[2020-12-31 14:19] LABS: ALT (SGPT) 8 U/L (8-55); AST (SGOT) 20 U/L (5-34); Alkaline Phosphatase 73 U/L (40-110); Anion Gap 14 mmol/L (10-20); BUN (Urea Nitrogen) 20 mg/dL (9.8-20.1); Bilirubin, Total 0.4 mg/dL (0.2-1.2); Calc. Creatinine Clearance 0 mL/min (70-130); Calcium 9.1 mg/dL (7.8-10.44); Carbon Dioxide 28 mmol/L (23-31); Chloride 105 mmol/L (98-107); Glucose 107 mg/dL (83-110); Potassium 3.9 mmol/L (3.5-5.1); Sodium 143 mmol/L (136-145)
--- NOTE | 2020-12-31 16:25 | CT ---
CT HEAD WITHOUT CONTRAST: Indications: Stroke protocol. Aphasia. Comparison: CT 03-15-2020 FINDINGS: Ventricles have normal size and position. Moderately severe chronic ischemic white matter changes moira ear stable from the prior study. There is no evidence of acute cortical infarct. No mass, hemorrhage, or edema. Sinuses are clear. IMPRESSION: Severe chronic ischemic changes appear stable. No acute process. Findings relayed to Dr. Barton at 2:35 p.m. POS: [facility]
[2020-12-31] MEDS ORDERED: Aspirin Chewable 81 MG TAB ONE (16:45)
[2020-12-31] MEDS ORDERED: Acetaminophen 325 MG TAB ONE (16:51)
[2020-12-31] MEDS ORDERED: Promethazine HCl 25 MG/ML VIAL ONE (18:58)
== END 2020-12-31 19:59 | disposition short-term general hospital (02) ==
LOC: MADERS 13:48
DX: G45.9 Transient cerebral ischemic attack, unspecified (principal); E03.9 Hypothyroidism, unspecified; Z79.899 Other long term (current) drug therapy
CPT/HCPCS: 36416; 70450; 80053; 84484; 85025; 85610; 85730; 93005; 96365; J2550; J7050

== ENCOUNTER 2021-06-23 21:35 | Emergency (ER) | payer OTHER, MEDICARE ==
[2021-06-23] MEDS ORDERED: Fentanyl 100 MCG/2 ML VIAL ONE (22:53)
[2021-06-23] MEDS ORDERED: Acetaminophen 500 MG TAB ONE (23:46)
[2021-06-23] MEDS ORDERED: Ibuprofen 600 MG TAB ONE (23:46)
== END 2021-06-24 | disposition home or self-care (01) ==
LOC: MADERS 21:35
DX: S20.229A Contusion of unspecified back wall of thorax, initial encounter (principal); E03.9 Hypothyroidism, unspecified; Z85.72 Personal history of non-Hodgkin lymphomas; Z85.89 Personal history of malignant neoplasm of other organs and systems; W18.09XA Striking against other object with subsequent fall, initial encounter
CPT/HCPCS: 70450; 71250; 72125; 74177; 96374; J3010

== ENCOUNTER 2021-09-12 10:49 | Emergency (ER) | payer MEDICARE, OTHER | END 2021-09-12 12:38 | disposition home or self-care (01) | LOC: MADERS 10:49 | DX: J30.9 Allergic rhinitis, unspecified (principal); R42 Dizziness and giddiness; T44.1X5A Adverse effect of other parasympathomimetics [cholinergics], initial encounter; R29.700 NIHSS score 0; Z76.0 Encounter for issue of repeat prescription; I10 Essential (primary) hypertension; E78.5 Hyperlipidemia, unspecified | CPT/HCPCS: 70450; 93005 ==

== ENCOUNTER 2022-11-09 13:10 | Emergency (ER) | payer MEDICARE, OTHER ==
[2022-11-09] MEDS ORDERED: Meclizine HCl 25 MG TAB ONE (13:39)
[2022-11-09 14:04] LABS: #Basophils 0.1 thou/uL (0.0-0.2); #Eosinphils 0.2 thou/uL (0.0-0.7); #Lymphocytes 1.4 thou/uL (1.20-3.40); #Monocytes 0.6 thou/uL (0.11-0.59); #Neutrophils 3.8 thou/uL (1.40-6.50); %Basophils 1.4 % (0.0-1.0); %Eosinophils 3.7 % (0.0-10.0); %Lymphocytes 23.1 % (21.0-51.0); %Monocytes 9.5 % (0.0-10.0); %Neutrophils 62.3 % (42.0-75.0); Hemoglobin 13.6 g/dL (12.0-16.0); Mean Corpuscular HGB CONC 32.3 g/dL (32.0-36.0); Mean Corpuscular Hemoglobin 30.2 pg (27.0-31.0); Mean Corpuscular Volume 93.5 fl (78.0-98.0); Mean Platelet Volume 7.6 fL (7.4-10.4); Platelet Count 223 10x3/uL (130-400); RBC Distribution Width 12.1 % (11.5-14.5); Red Blood Cell (RBC) Count 4.51 mill/uL (4.20-5.40)
[2022-11-09 14:20] LABS: ALT (SGPT) 13 U/L (8-55); AST (SGOT) 30 U/L (5-34); Albumin 4.1 g/dL (3.4-4.8); Alkaline Phosphatase 98 U/L (40-110); Anion Gap 12 mmol/L (10-20); BUN (Urea Nitrogen) 33 mg/dL (9.8-20.1); Bilirubin, Total 0.4 mg/dL (0.2-1.2); Calc. Creatinine Clearance 0 mL/min (70-130); Calcium 9.6 mg/dL (7.8-10.44); Carbon Dioxide 28 mmol/L (23-31); Chloride 106 mmol/L (98-107); Estimated GFR 35; Globulin 3.3 g/dL (2.4-3.5); Glucose 107 mg/dL (83-110); Protein, Total 7.4 g/dL (5.8-8.1); Sodium 142 mmol/L (136-145)
[2022-11-09 14:43] LABS: Bilirubin Negative (Negative); Blood, Urine Negative (Negative); Clarity Clear (Clear); Glucose, Urine (Dipstick) Negative (Negative); Ketone, Urine Negative (Negative); Leukocyte Negative (Negative); Nitrite Negative (Negative); Protein, Urine (Dipstick) Negative (Neg-Trace); Urobilinogen 0.2 mg/dL (Less than 2); pH, Urine 6.5 (5.0-9.0)
[2022-11-09] MEDS ORDERED: Diazepam 5 MG TAB ONE (16:02)
[2022-11-09 16:38] LABS: Cardiac Risk 3.2 (Less than 4.5)
[2022-11-09] MEDS ORDERED: Aspirin 325 MG TAB ONE (17:13)
== END 2022-11-09 20:30 | disposition short-term general hospital (02) ==
LOC: MADERS 13:10
DX: G45.9 Transient cerebral ischemic attack, unspecified (principal); E03.9 Hypothyroidism, unspecified; Z79.899 Other long term (current) drug therapy
CPT/HCPCS: 36416; 70450; 71045; 80053; 80061; 81003; 84484; 85025; 93005

== ENCOUNTER 2023-12-10 14:43 | Emergency (ER) | payer MEDICARE, OTHER | END 2023-12-10 15:18 | disposition home or self-care (01) | LOC: MADERS 14:43 | DX: Z76.0 Encounter for issue of repeat prescription (principal); I10 Essential (primary) hypertension; E03.9 Hypothyroidism, unspecified | CPT/HCPCS: 99281 ==

== ENCOUNTER 2025-09-22 19:59 | Emergency (ER) | payer MEDICARE, OTHER | END 2025-09-22 20:27 | disposition home or self-care (01) | LOC: MADERS 19:59 | DX: S51.811D Laceration without foreign body of right forearm, subsequent encounter (principal); I10 Essential (primary) hypertension; E78.5 Hyperlipidemia, unspecified; W18.30XD Fall on same level, unspecified, subsequent encounter; Z79.899 Other long term (current) drug therapy; Z79.82 Long term (current) use of aspirin | CPT/HCPCS: 99282 ==